=== PATIENT | female | born 1975 | race Caucasian/White ===

== ENCOUNTER → 2017-11-19 | Outpatient (CLI) | payer OTHER ==
[~2017-11-19] MED LIST: DARV PO; IBUP-232 PO; Z.0.NO CURRENT MEDS
--- NOTE | 2017-11-19 16:29 | RADRPT ---
EXAM DATE/TIME: 11/19/2017 15:28 [place] COMPARISON: No previous studies available for comparison. INDICATIONS : Irregular menstruation. MEDICAL HISTORY : . Ovarian cysts. SURGICAL HISTORY : Tubal ligation. Right clavicle surgery. Breast augmentation. ENCOUNTER: Initial ACUITY: 1 month PAIN SCORE: 0/10 LOCATION: Bilateral pelvis MEASUREMENTS: UTERUS: 9.7 x 4.6 x 5.5 cm ENDOMETRIAL STRIPE: 9 mm RIGHT OVARY: 2.4 x 1.5 x 2.8 cm LEFT OVARY: 3.5 x 2.1 x 1.9 cm FINDINGS: UTERUS: The myometrium has homogeneous echotexture without mass. Endometrium has a homogeneous trilaminar ap pearance. No focal lesion is seen on grayscale imaging. Nabothian cysts are present in the cervix. RIGHT OVARY: Ovary contains no mass or significant cystic lesion. Follicles are present. LEFT OVARY: Ovary contains no mass or significant cystic lesion. Follicles are present. MISCELLANEOUS: No free fluid. CONCLUSION: 1. No abnormality is identified to explain the clinical symptoms. Endometrium demonstrates no abnorma lity and no uterine mass is seen. 2. Ovaries have a normal appearance containing follicles. Elvin Casillas MD on November 19, 2017 at 16:24 Board Certified Radiologist. This report was verified electronically.
== END ==
LOC: HRAD 15:08
PROVIDERS: ATTEND Obstetrics & Gynecology
DX: Z01.419 Encounter for gynecological examination (general) (routine) without abnormal findings (principal); N92.6 Irregular menstruation, unspecified
CPT/HCPCS: 76830; 76856